=== PATIENT | male | born 1955 | race Caucasian/White ===

== ENCOUNTER 2022-03-17 23:07 | Emergency (ER) | payer MEDICARE, MEDICAID ==
[~2022-03-17] VITALS: Ht 167.6 cm; Wt 63.6 kg
[2022-03-17] MEDS ORDERED: ACETAMINOPHEN 500 MG TABLET PO ONE (23:45)
[2022-03-17] MEDS ORDERED: FAMOTIDINE 10 MG/ML 2 ML VIAL IVP ONE (23:45)
[2022-03-17] MEDS ORDERED: ONDANSETRON HCL 4 MG/2 ML VIAL IVP ONE (23:45)
[2022-03-18 00:08] VITALS: BP 144/86
[2022-03-18 00:13] LABS: BASOPHILS % (AUTO) 0.3 % (0.0-2.0); EOSINOPHILS % (AUTO) 0.1 % (1.0-6.0); HEMATOCRIT 45.1 % (41-53); HEMOGLOBIN 15.3 g/dL (13.5-17.5); LYMPHOCYTES # (AUTO) 1.8 K/uL (1.0-4.8); LYMPHOCYTES % (AUTO) 18.1 % (22.0-44.0); MEAN CORPUSCULAR HEMOGLOBIN 31.9 pg (26.0-34.0); MEAN CORPUSCULAR HGB CONC 33.9 G/dL (31.0-37.0); MEAN CORPUSCULAR VOLUME 94 fL (80-100); MONOCYTES # (AUTO) 0.6 K/uL (0.1-1.0); NEUTROPHILS # (AUTO) 7.3 K/uL (1.8-7.7); NEUTROPHILS % (AUTO) 75.5 % (40.0-70.0); PLATELET COUNT (AUTO) 190 K/uL (150-450); RED BLOOD CELL COUNT(AUTO) 4.79 MIL/uL (4.50-5.90); RED CELL DISTRIBUTION WIDTH 13.6 % (11.5-14.5)
[2022-03-18 00:23] LABS: ANION GAP 5 mmol/L (8-16); CALCIUM, TOTAL 9.1 mg/dL (8.8-10.5); CARBON DIOXIDE 33 mmol/L (22-29); CHLORIDE 105 mmol/L (98-107); CREATININE 1.09 mg/dL (0.60-1.30); GLUCOSE,RANDOM 111 mg/dL (70-110); POTASSIUM 5.1 mmol/L (3.5-5.1); SODIUM SERUM 143 mmol/L (136-145); UREA NITROGEN, BLOOD 18 mg/dL (7-18)
[2022-03-18 00:27] LABS: GLOMERULAR FILTR. RATE CALC > 60 mL/min (>60)
[2022-03-18 00:36] LABS: B-TYPE NATRIURETIC PEPTIDE 25 pg/mL (0-100)
[2022-03-18 00:49] LABS: ALANINE AMINOTRANSFERASE 16 U/L (12-78); ALBUMIN 3.9 g/dL (3.4-5.0); ALKALINE PHOSPHATASE 53 U/L (46-116); ASPARTATE AMINOTRANSFERASE 13 U/L (15-37); BILIRUBIN,TOTAL 0.3 mg/dL (0.1-1.0); CREATINE KINASE, TOTAL ONLY 91 U/L (39-308); TOTAL PROTEIN, SERUM 7.5 g/dL (6.4-8.2)
[2022-03-18] MEDS ORDERED: IOHEXOL 350 MG/ML 100 ML VIAL ONE (01:34)
[2022-03-18] MEDS ORDERED: SODIUM CHLORIDE 0.9% 100 ML ONE (01:34)
== END 2022-03-18 05:06 | disposition left against medical advice (07) ==
LOC: EMS 23:11
DX: R07.89 Other chest pain (principal)
CPT/HCPCS: 99285; 70450; 71045; 80053; 82550; 83880; 84484; 85025; 36415; 71260; 72193; 74160; 93005; 96374; 96375; J3490; J2405; Q9967; J7050